=== PATIENT | female | born 1955 | race Caucasian/White ===

== ENCOUNTER 2024-02-26 13:17 | Inpatient (IN) | payer MEDICARE, MEDICAID ==
[2024-02-26] VITALS (7 sets, daily range): BP systolic 97–115; BP diastolic 62–74; TEMP 97.8; O2SAT 98–100
[~2024-02-26] VITALS: Ht 170.2 cm; Wt 74.8 kg
[2024-02-26] MEDS ORDERED: MONT10TA22 PO (13:39)
[2024-02-26] MEDS ORDERED: ASPI81TA31 PO (13:39)
[2024-02-26] MEDS ORDERED: ALLO300T2 PO (13:39)
[2024-02-26] MEDS ORDERED: POTA10CA43 PO (13:39)
[2024-02-26] MEDS ORDERED: ATOR40TA PO (13:39)
[2024-02-26] MEDS ORDERED: METO50TA7 PO (13:42)
[2024-02-26] MEDS: IV NORMAL SALINE 1000 ML BAG IV ONE ×2 (13:57→14:34)
[2024-02-26 14:06] LABS: CALCIUM 8.7 mg/dL (8.5-10.1); CARBON DIOXIDE 22 mmol/L (21-32); CHLORIDE 99 mmol/L (98-107); CREATININE 1.8 mg/dL (0.6-1.3); GLUCOSE 168 mg/dL (74-106); POTASSIUM 4.3 mmol/L (3.5-5.1); SODIUM SERUM 133 mmol/L (136-145); UREA NITROGEN, BLOOD 22 mg/dL (7-18)
[2024-02-26] MEDS ORDERED: HYDROCORTISONE SOD SUCCINATE 100 MG/2 ML VIAL IV ONE (14:06)
[2024-02-26] MEDS ORDERED: CEFTRIAXONE /D5W 50ML IVPB **ER PYXIS IV ONE (14:06)
[2024-02-26] MEDS: CEFTRIAXONE 1 G in IV DEXTROSE 5% 50 ML IV ONE (14:06)
[2024-02-26] MEDS: HYDROCORTISONE SOD SUCCINATE 100 MG/2 ML VIAL IV ONE (14:08)
[2024-02-26 14:16] LABS: BASOPHILS % (AUTO) 0.3 % (0.0-2.0); DIFFERENTIAL COMMENT 0; EOSINOPHILS # (AUTO) 0.1 K/uL (0.0-0.7); EOSINOPHILS % (AUTO) 1.9 % (0.0-7.0); HEMATOCRIT 34.1 % (31.2-41.9); HEMOGLOBIN 11.3 g/dL (10.9-14.3); LYMPHOCYTES % (AUTO) 29.4 % (20.5-51.5); MEAN CORPUSCULAR HEMOGLOBIN 32.9 uug (24.7-32.8); MEAN CORPUSCULAR HGB CONC 33 g/dL (32.3-35.6); MEAN CORPUSCULAR VOLUME 99.4 fL (75.5-95.3); MONOCYTES # (AUTO) 0.5 K/uL (0.1-1.30); MONOCYTES % (AUTO) 7.2 % (0.0-11.0); NEUTROPHILS # (AUTO) 4.2 K/uL (1.8-8.9); NEUTROPHILS % (AUTO) 61.2 % (38.5-71.5); PLATELET COUNT (AUTO) 292 K/uL (179-408); RED BLOOD CELL COUNT(AUTO) 3.43 MIL/uL (3.63-4.92); RED CELL DISTRIBUTION WIDTH 17.8 % (12.3-17.7); WHITE BLOOD COUNT (AUTO) 6.9 K/uL (3.8-11.8)
[2024-02-26 14:19] LABS: ALANINE AMINOTRANSFERASE 28 U/L (14-59); ALBUMIN 2.5 g/dL (3.4-5.0); ALKALINE PHOSPHATASE 174 U/L (50-136); ASPARTATE AMINOTRANSFERASE 35 U/L (15-37); BILIRUBIN,DIRECT 0.1 mg/dL (0.0-0.2); BILIRUBIN,TOTAL 0.4 mg/dL (0.2-1.0); NT-PRO BNP 438 pg/mL (0-125); TOTAL PROTEIN, SERUM 5.9 g/dL (6.4-8.2)
[2024-02-26 14:31] LABS: ABG BASE EXCESS -6.2 mmol/L (-2.0-3.0); ABG HCO3 17.7 mmol/L (21.0-28.0); ABG PH 7.388 (7.350-7.450); ABG PO2 146.5 mmHg (83.0-108.0); ABG SITE RIGHT RADIAL; ABG TOTAL HEMOGLOBIN 11.9 G/dL (12.0-16.0); AaDO2 98.9 mmHg; COHb 0.3 % (0.5-1.5); O2Hb 98.6 % (94.0-98.0)
[2024-02-26] MEDS ORDERED: MAGNESIUM HYDROXIDE 30 ML LIQUID UDC PO PRN (21:30)
[2024-02-26] MEDS ORDERED: HYDROCODONE/APAP 5-325MG TABLET PO PRN (21:30)
[2024-02-26] MEDS ORDERED: REMEDY ESSENTIAL ZINC PASTE 113 GM TP PRN (21:30)
[2024-02-26] MEDS ORDERED: ONDANSETRON 4 MG/2 ML VIAL IV PRN (21:30)
[2024-02-26] MEDS: TEMAZEPAM 15 MG CAPSULE PO PRN (21:47)
[2024-02-26] MEDS: IV NS 1000 ML 1,000 ML IV PRN (21:48)
[2024-02-27] VITALS (17 sets, daily range): BP systolic 80–128; BP diastolic 44–85; TEMP 97.5–98.3; O2SAT 95–100
[2024-02-27] MEDS: ACETAMINOPHEN 325 MG TABLET PO PRN (01:44)
[2024-02-27 02:03] LABS: *BILIRUBIN,URIN NEGATIVE (NEGATIVE); *BLOOD, URINE NEGATIVE (NEGATIVE); *CLARITY,URINE CLEAR (CLEAR); *COLOR,URINE LIGHT YELLOW (YELLOW); *KETONES,URINE NEGATIVE (NEGATIVE); *PROTEIN,URINE NEGATIVE (NEGATIVE); *UROBILINOGEN,URINE 0.2 E.U./dl (NORMAL); LEUKOCYTE ESTERASE ,URINE NEGATIVE (NEGATIVE); NITRITE, URINE NEGATIVE (NEGATIVE); PH,URINE 5.5 (5.0-8.0); UGLUCOSE TRACE (NEGATIVE)
[2024-02-27 02:41] LABS: BACTERIA,URINE RARE /HPF (NONE SEEN); RBC,URINE 0-3 /HPF (0-3); SQUAMOUS EPITHELIAL CELL,UR FEW /HPF (NONE SEEN); WBC,URINE 0-3 /HPF (0-3)
[2024-02-27 07:08] LABS: BASOPHILS % (AUTO) 0.3 % (0.0-2.0); EOSINOPHILS % (AUTO) 0.7 % (0.0-7.0); HEMATOCRIT 29.1 % (31.2-41.9); HEMOGLOBIN 9.7 g/dL (10.9-14.3); LYMPHOCYTES # (AUTO) 1.9 K/uL (0.8-4.8); LYMPHOCYTES % (AUTO) 32.4 % (20.5-51.5); MEAN CORPUSCULAR HGB CONC 33 g/dL (32.3-35.6); MEAN CORPUSCULAR VOLUME 99.2 fL (75.5-95.3); MONOCYTES # (AUTO) 0.5 K/uL (0.1-1.30); MONOCYTES % (AUTO) 8.6 % (0.0-11.0); NEUTROPHILS # (AUTO) 3.5 K/uL (1.8-8.9); PLATELET COUNT (AUTO) 243 K/uL (179-408); RED BLOOD CELL COUNT(AUTO) 2.93 MIL/uL (3.63-4.92); RED CELL DISTRIBUTION WIDTH 17.6 % (12.3-17.7)
[2024-02-27 07:25] LABS: DIFFERENTIAL COMMENT 1
[2024-02-27 07:31] LABS: THYROID STIMULATING HORMONE 0.479 mIU/mL (0.358-3.740)
[2024-02-27 08:42] LABS: CREATININE 1.3 mg/dL (0.6-1.3); MAGNESIUM 1.8 mg/dL (1.8-2.4); PHOSPHOROUS 2.6 mg/dL (2.5-4.9); POTASSIUM 3.6 mmol/L (3.5-5.1)
[2024-02-27] MEDS ORDERED: CEFEPIME HCL 1 G in IV DEXTROSE 5% 50 ML IV SCH (09:00)
[2024-02-27] MEDS: ASPIRIN 81 MG TAB.CHEW PO SCH (09:29)
[2024-02-27] MEDS: ALLOPURINOL 300 MG TABLET PO SCH (09:29)
[2024-02-27] MEDS: MONTELUKAST SODIUM 10 MG TABLET PO SCH (09:35)
[2024-02-27] MEDS: IV NORMAL SALINE 500 ML IV ONE (09:51)
[2024-02-27] MEDS ORDERED: MIDODRINE HCL 5 MG TABLET PO SCH ×2 (15:30→15:45)
[2024-02-27] MEDS: MIDODRINE HCL 5 MG TABLET PO SCH (15:55)
[2024-02-27] MEDS: ATORVASTATIN 40 MG TABLET PO SCH (17:34)
[2024-02-27] MEDS ORDERED: LISI1TAB32 PO (19:03)
[2024-02-27] MEDS ORDERED: GABA300C PO (19:03)
[2024-02-27] MEDS ORDERED: METF-440 PO (19:03)
[2024-02-27] MEDS: GABAPENTIN 300 MG CAPSULE PO SCH (21:34)
[2024-02-28 07:16] LABS: CALCIUM 8.6 mg/dL (8.5-10.1); CREATININE 0.9 mg/dL (0.6-1.3); POTASSIUM 3.9 mmol/L (3.5-5.1)
[2024-02-28 07:47] VITALS: BP 107/62; TEMP 98.2; O2SAT 96
[2024-02-28 08:45] VITALS: BP_SYST 104; BP_SYST 83; BP_SYST 95; BP_DIAS 53; BP_DIAS 54; BP_DIAS 67; O2SAT 96
[2024-02-28] MEDS ORDERED: SWABABLE VALVE TRANSFER SET EA MC ONE (10:39)
[2024-02-28] MEDS ORDERED: IOHEXOL 350 100 ML INFUS..BTL ONE (10:39)
[2024-02-28] MEDS ORDERED: IV NORMAL SALINE 250 ML IV ONE (10:41)
[2024-02-28 12:02] VITALS: BP 97/55; TEMP 97.3; O2SAT 98
[2024-02-28] MEDS ORDERED: MIDO5TAB5 PO (14:55)
[2024-02-28 15:27] VITALS: BP 126/71; TEMP 98.5; O2SAT 100
== END 2024-02-28 15:00 | disposition home or self-care (01) | DRG 73 ==
LOC: ER 13:17 → CCU 19:28 → TELE3 02-27 12:08 → MEDSURG3 02-28 08:10
PROVIDERS: ADMIT Nurse Practitioner Acute Care; ATTEND Nurse Practitioner Acute Care
DX: G90.8 Other disorders of autonomic nervous system (principal); N17.0 Acute kidney failure with tubular necrosis; E87.1 Hypo-osmolality and hyponatremia; E87.20 Acidosis, unspecified; E44.1 Mild protein-calorie malnutrition; E86.1 Hypovolemia; E86.0 Dehydration; J44.89 Other specified chronic obstructive pulmonary disease; Z96.641 Presence of right artificial hip joint; M25.552 Pain in left hip; Z91.81 History of falling; E78.5 Hyperlipidemia, unspecified; R55 Syncope and collapse; E88.09 Other disorders of plasma-protein metabolism, not elsewhere classified; Z68.25 Body mass index [BMI] 25.0-25.9, adult; Z88.0 Allergy status to penicillin; Z87.891 Personal history of nicotine dependence; Z79.899 Other long term (current) drug therapy; L30.9 Dermatitis, unspecified; I10 Essential (primary) hypertension; I95.2 Hypotension due to drugs; T46.4X5A Adverse effect of angiotensin-converting-enzyme inhibitors, initial encounter; T50.2X5A Adverse effect of carbonic-anhydrase inhibitors, benzothiadiazides and other diuretics, initial encounter; Y92.531 Health care provider office as the place of occurrence of the external cause; Z86.19 Personal history of other infectious and parasitic diseases
CPT/HCPCS: 36415; 36600; 71045; 73501; 76770; 83605; 83735; 84100; 84443; 84484; 85025; 87040; 93005; 93307; A4606; C1758; G0378; J0696; J1720; J7040; Q9967